=== PATIENT | male | born 1930 | race Caucasian/White ===

== ENCOUNTER → 2018-11-03 | Outpatient (CLI) | payer MEDICARE | END | disposition home or self-care (01) | LOC: CFH 09:22 | PROVIDERS: ATTEND Family Medicine | DX: I65.23 Occlusion and stenosis of bilateral carotid arteries (principal); I35.0 Nonrheumatic aortic (valve) stenosis; H34.11 Central retinal artery occlusion, right eye | CPT/HCPCS: 93306; 93880 ==

== ENCOUNTER 2019-12-17 02:48 | Emergency (ER) | payer MEDICARE ==
[~2019-12-17] VITALS: Ht 167.6 cm; Wt 69.5 kg
--- NOTE | 2019-12-17 03:03 | NUR ---
PT REPORTS PAULA CATH IS "PLUGGED".
--- NOTE | 2019-12-17 03:52 | NUR ---
PAULA PLACED PER ORDER. 18Fr. coude.
--- NOTE | 2019-12-17 04:30 | NUR ---
UA COLLECTED AND SENT TO LAB. PT RESTING ON GURNEY REPORTS RELIEF FROM BLADDER PAIN.
[2019-12-17 04:47] LABS: CULTURE INDICATED? YES; MICROSCOPIC INDICATED
[2019-12-17 05:03] VITALS: BP 161/68
== END 2019-12-17 05:32 ==
LOC: ED 05:26
DX: N30.01 Acute cystitis with hematuria (principal); N40.1 Benign prostatic hyperplasia with lower urinary tract symptoms; R33.8 Other retention of urine
CPT/HCPCS: 51702; 81001; 87077; 87086; 87186; 99284